=== PATIENT | female | born 1995 | race Caucasian/White ===

== ENCOUNTER 2023-07-02 18:44 | Emergency (ER) | payer OTHER ==
[~2023-07-02] VITALS: Ht 160 cm; Wt 93.9 kg
[2023-07-02 18:59] VITALS: BP 112/80; PULSE 78; RESP 18; TEMP 97.8; O2SAT 98
[2023-07-02] MEDS ORDERED: HYDR-5080 PO (19:57)
[2023-07-02] MEDS: HYDROcodone/APAP 5/325 MG 1 TAB TAB PO ONE (20:06)
== END 2023-07-02 21:05 | disposition home or self-care (01) ==
LOC: MED 18:44
DX: S92.492A Other fracture of left great toe, initial encounter for closed fracture (principal); Z79.899 Other long term (current) drug therapy; X58.XXXA Exposure to other specified factors, initial encounter; Y93.89 Activity, other specified; Y92.89 Other specified places as the place of occurrence of the external cause; Y99.8 Other external cause status
CPT/HCPCS: 99283